=== PATIENT | female | born 1995 | race Caucasian/White ===

== ENCOUNTER → 2017-11-01 | Outpatient (CLI) | payer SELFPAY ==
[~2017-11-01] MED LIST: AZIT250 PO; BENTYL20 MG PO; BIRTH CONTROL; Bactrim Ds Tab1 EACH PO; CEPH500 PO; Cipro500 MG PO; DOCU100 PO; FISH1000; HYDR1TAB94 PO; IBUP100S; IBUP600 PO; IBUP800 PO; KEFLEX250 MG PO; MAGCIT300 PO; Macrobid 100 M100 MG PO; PROM25 PO; Percocet 5-3251 EACH PO; Pyridium100 MG PO; RXPROMSY PO; SULTRIDS PO; SULTRIEL PO; TYLENOL CHILDRENS; Verotin-Gr Cap1 EACH PO
[2017-11-02 10:33] LABS: Source CERVICAL
== END ==
LOC: LAB 17:32
PROVIDERS: Registered Nurse Community Health
DX: Z12.4 Encounter for screening for malignant neoplasm of cervix (principal)
CPT/HCPCS: 87070; 87205; G0123

== ENCOUNTER → 2018-04-21 | Outpatient (CLI) | payer SELFPAY ==
[2018-04-22 09:52] LABS: Candida species (DNA Probe) Negative (NEGATIVE); G. vaginalis (DNA Probe) Negative (NEGATIVE); T. vaginalis (DNA Probe) Negative (NEGATIVE)
== END ==
LOC: LAB SHORT 13:40 → LAB 13:40
PROVIDERS: Registered Nurse Community Health
DX: N76.0 Acute vaginitis (principal)
CPT/HCPCS: 87070; 87205; 87480; 87510; 87660

== ENCOUNTER → 2018-08-19 | Outpatient (CLI) | payer SELFPAY | END | disposition home or self-care (01) | LOC: LAB EV 09:45 → LAB SHORT 09:45 | DX: R50.9 Fever, unspecified (principal) | CPT/HCPCS: 87070 ==

== ENCOUNTER → 2018-08-31 | Outpatient (CLI) | payer SELFPAY | LOC: LAB 17:31 → LAB SHORT 17:31 | DX: B37.3 Candidiasis of vulva and vagina (principal) | CPT/HCPCS: 87070; 87205 ==

== ENCOUNTER → 2018-09-08 | Outpatient (CLI) | payer SELFPAY | LOC: LAB SHORT 11:29 → LAB 11:29 | DX: N39.0 Urinary tract infection, site not specified (principal) | CPT/HCPCS: 87086 ==

== ENCOUNTER 2023-01-11 07:04 | Inpatient (IN) | payer OTHER ==
[~2023-01-11] VITALS: Ht 170.2 cm; Wt 111.3 kg
[2023-01-11] VITALS (19 sets, daily range): BP systolic 99–137; BP diastolic 55–72
[2023-01-11 07:56] LABS: BASOPHILS ABSOLUTE AUTO 0.02 K/mm3 (0.00-0.23); BASOPHILS PERCENT AUTO 0 % (0-2); EOSINOPHILS ABSOLUTE AUTO 0.05 K/mm3 (0.00-0.68); EOSINOPHILS PERCENT AUTO 1 % (0-6); Hematocrit 35.4 % (33.0-51.0); Hemoglobin 12.2 g/dL (11.5-16.0); IMMATURE GRAN ABSOLUTE AUTO 0.06 K/mm3 (0.00-0.10); IMMATURE GRAN PERCENT AUTO 1 % (0-1); LYMPHOCYTES ABSOLUTE AUTO 1.36 K/mm3 (0.84-5.20); LYMPHOCYTES PERCENT AUTO 17 % (21-46); MONOCYTES ABSOLUTE AUTO 0.56 K/mm3 (0.16-1.47); MONOCYTES PERCENT AUTO 7 % (4-13); Mean Corpuscular HGB 31.2 pg (26.0-34.0); Mean Corpuscular HGB Conc 34.5 g/dL (31.5-36.5); Mean Corpuscular Volume 91 fL (80-100); Mean Platelet Volume 10.1 fL (9.1-12.4); NEUTROPHILS ABSOLUTE AUTO 6.02 K/mm3 (1.96-9.15); NEUTROPHILS PERCENT AUTO 75 % (41-73); Platelet Count 222 K/mm3 (150-400); RDW Coefficient Variation 12.4 % (11.7-14.2); RDW Standard Deviation 40.2 fL (35.1-46.3); Red Blood Cell Count 3.91 M/mm3 (3.80-5.20); White Blood Cell Count 8.07 K/mm3 (4.00-11.30)
[2023-01-12 04:42] VITALS: BP 106/55
[2023-01-12 06:03] LABS: Hematocrit 35.2 % (33.0-51.0); Hemoglobin 12.1 g/dL (11.5-16.0); Mean Corpuscular HGB 31.2 pg (26.0-34.0); Mean Corpuscular HGB Conc 34.4 g/dL (31.5-36.5); Mean Corpuscular Volume 91 fL (80-100); Mean Platelet Volume 10.1 fL (9.1-12.4); Platelet Count 208 K/mm3 (150-400); RDW Coefficient Variation 12.2 % (11.7-14.2); RDW Standard Deviation 40.2 fL (35.1-46.3); Red Blood Cell Count 3.88 M/mm3 (3.80-5.20); White Blood Cell Count 13.83 K/mm3 (4.00-11.30)
[2023-01-12 08:39] VITALS: BP 108/65
[2023-01-12 12:31] VITALS: BP 114/56
[2023-01-12 16:29] VITALS: BP 120/72
[2023-01-12] MEDS ORDERED: IBUP800 PO (16:52)
[2023-01-12] MEDS ORDERED: DOCU100 PO (16:53)
--- NOTE | 2023-01-12 19:14 | NUR ---
Printed instructions reviewed w/pt and . Deny questions at this time.
[2023-01-12 19:34] VITALS: BP 105/60
== END 2023-01-12 19:55 | disposition home or self-care (01) | DRG 807 ==
LOC: OBS 07:04 → BC 07:06 → OBS 07:15 → BC 07:18
PROVIDERS: ADMIT Advanced Practice Midwife
PROC: 10E0XZZ Delivery of Products of Conception, External Approach (ICD-10-PCS; principal; 2023-01-11)
PROC: 3E033VJ Introduction of Other Hormone into Peripheral Vein, Percutaneous Approach (ICD-10-PCS; 2023-01-11)
PROC: 10907ZC Drainage of Amniotic Fluid, Therapeutic from Products of Conception, Via Natural or Artificial Opening (ICD-10-PCS; 2023-01-11)
DX: O48.0 Post-term pregnancy (principal); Z37.0 Single live birth; Z67.40 Type O blood, Rh positive; Z3A.41 41 weeks gestation of pregnancy
CPT/HCPCS: 36415; 85025; 85027; 86850; 86900; 86901; A9270; J1885; J2405; J2590; J3010; J7120

== ENCOUNTER → 2024-07-20 | Outpatient (CLI) | payer OTHER ==
[2024-07-22 15:00] LABS: APTIMA MEDIA TYPE Urine; C. TRACHOMATIS BY TMA Negative (Negative); N. GONORRHOEAE BY TMA Negative (Negative); SPECIMEN SOURCE Urine
== END | disposition home or self-care (01) ==
LOC: LAB 11:35 → LAB SHORT 11:35
PROVIDERS: Family Medicine
DX: Z34.81 Encounter for supervision of other normal pregnancy, first trimester (principal); Z3A.01 Less than 8 weeks gestation of pregnancy
CPT/HCPCS: 87086; 87491; 87591

== ENCOUNTER → 2024-12-26 | Outpatient (CLI) | payer OTHER | LOC: LAB SHORT 15:44 → LAB 15:44 | DX: Z34.83 Encounter for supervision of other normal pregnancy, third trimester (principal) ==